=== PATIENT | female | born 1990 | race Caucasian/White ===

== ENCOUNTER → 2017-01-29 15:40 | Observation (INO) ==
--- NOTE | 2017-01-29 13:36 | OB/GYN History & Physical ---
Date of Encounter: 01/29/17 Time of Encounter: 13:32 Assessment and Plan (1) 38 weeks gestation of Current visit: Yes Status: Acute Patient admitted for labor evaluation (2) Lower abdominal pain Current visit: Yes Status: Acute admitted for observation (3) NST (non-stress test) reactive Current visit: Yes Status: Acute baseline 135 bpm moderate variability +15x15 accels no decels noted. History of Present Illness Chief complaint: Contractions HPI: Ms. Edwards is a 26 year old female at 38w4d with EDC of 02/08/2017 presents to labor and delivery with complaints of contractions or lower abdominal pain that started after intercourse last night. Patient denies LOF or VB. Patient denies any urinary symptoms. Patient states only related problem was late care. Patient has also had limited care therefor GBS culture was collected prior to SVE. Blood type: B Negative, Rubella: nonimmune, Hep B nontreactive, GBS: Unknown. Past Med Surg Social Fam HX - Past Medical History Source: patient Medical history: no medical history Psychiatric history: no psych history - Past Surgical History Surgical History: other - Social History Smoking Status: Current every day smoker Smokeless Tobacco Status: No Alcohol use: none Drug use: none Current living situation: Home - Independent Recent Out of Country Travel Within the Last 8 Weeks: No Exposure or Possible Exposure to Illness During Travel: No - Family History Mother Family Member Ethnicity: Non- Living Status: Still Living Hx Family Cardiac Disorders: No Hx Family Respiratory Disorders: No Hx Family Cancer: No Hx Family GI Disorders: No Hx Family Endocrine Disorder: Yes Hx Family Neuromuscular Disorders: No Hx Family Neurologic Disorders: No Hx Family HEENT Disorders: No Hx Family Autoimmune Disorders: No Obstetrical History - Pregnancies : 6 Para: 2 Term: 1 : 1 Ab's: 3 Livin Medications and Allergies Ferrous Sulfate 1 tab PO DAILY 06/06/15 [History] Dha 1 tab PO DAILY 06/06/15 [History] Pantoprazole Sodium [Protonix] 20 mg PO DAILY 09/02/15 [History] Ibuprofen [Motrin] 600 mg PO Q6HR PRN #40 tab 10/18/15 [Rx] Ibuprofen [Motrin] 600 mg PO Q6HR PRN #40 tablet 10/18/15 [Rx] Ondansetron ODT [Zofran ODT] 4 mg SL Q8HR PRN #10 tab.rapdis 02/11/16 [Rx] Potassium Chloride [Klor-Con] 20 meq PO BID #8 packet 02/11/16 [Rx] Allergies No Known Allergies Allergy (Verified 04/18/15 14:20) Review of System OB - Constitutional Constitutional ROS IM: no fever(s), no headache(s) - Cardiovascular Cardiovascular: no chest pain, no edema, no palpitations, no pedal edema, no syncope - Respiratory Respiratory: no cough - Gastrointestinal Gastrointestinal: abdominal pain (lower abdominal pain), heartburn (reports history), no constipation, no diarrhea, no vomiting - Genitourinary Genitourinary: no abnormal vaginal bleeding, no dysuria, no flank pain, no urinary hesitancy, no urinary incontinence, no vaginal discharge, no vaginal odor, no vaginal pruritis Exam - Constitutional Constitutional: well developed, well nourished, no acute distress, average body habitus - HEENT HEENT: Normocephaly, Mucus Membranes Moist - Neck Neck exam: full ROM, supple - Lungs Respiratory exam: CTAB - Cardiovascular Cardiovascular exam: RRR, +S1, +S2 - Abdomen Abdomen: Present: bowel sounds normal, gravid, non tender - Extremities Extremities exam: full ROM, normal inspection Deep Tendon Reflex Grade: 2+ Normal - Vagina Vagina: Present: normal moisture - Cervix Dilation: 3 Effacement: 70 Station: -1 - Uterus Uterus exam: Present: normal size, normal contour - Anus/Rectum Anus/Rectum: Present: normal perianal skin (FHR 135 bpm moderate variability + 15x15 accels no decels noted. Ocassional contraction noted. Cat. 1 tracing.) Results All other labs normal. - VTE Reasons for not Prescribing Prophylaxis: Treatment not Indicated - Low risk for VTE
--- NOTE | 2017-01-29 15:40 | Discharge Summary ---
Date of Encounter: 01/29/17 Time of Encounter: 15:43 - Discharge Diagnosis (1) 38 weeks gestation of Priority: Primary Status: Acute Comments: -Noncompliant with care -Counseled pt on importance of regular visits for care -Pt scheduled for CBC w/ Diff, Glucose Tolerance test, -GBS pending -Will follow up with Dr. Leal outpatient, 02-02-17 -Had no further questions (2) Lower abdominal pain Priority: Secondary Status: Acute Comments: Likely 2/2 to Dayo-Beard contractions, contractions strength remains unchanged during admission (3) Rubella non-immune status, antepartum Priority: Secondary Status: Acute Comments: Pt stated she was not aware of MMR vaccine MMR Vaccine recommendation: Currently contraindicated given status Counseled pt on importance of MMR vaccine after (4) Rh negative status during Priority: Secondary Status: Acute Comments: Received RhoGam 12/07/16 in ED Qualifiers: Trimester: third trimester Qualified Code(s): O09.893 - Supervision of other high risk pregnancies, third trimester - Discharge Medications Home Medications: Ferrous Sulfate 1 tab PO DAILY 06/06/15 [History] Dha 1 tab PO DAILY 06/06/15 [History] Allergies/Adverse Reactions: Allergies No Known Allergies Allergy (Verified 04/18/15 14:20) Data Labs on day of discharge: GBS Date of admission: 01/29/17 12:48 Discharging clinician: Bryanna Aaron Anticipated date of discharge: 01/29/17 - Patient Status Disposition: Home, Self-Care Condition: Good Functional capacity at discharge: independent ambulation Overall status at discharge: other - Discharge Instructions Follow Up With: Bryanna Aaron MD [Partnered Physician] - - Diet and Activity Activity: resume usual activities as tolerated Diet: regular diet Hospital Course LICENSED EMBALMER Time Attestation: Total time spent providing and/or coordinating discharge services: Exam - Constitutional Vitals: Afeb, VSS General appearance IM: cooperative, A&O X 3, no acute distress - Respiratory Respiratory exam: Present: CTAB. Absent: accessory muscle use - Cardiovascular Cardiovascular exam IM: Present: RRR - GI/Abdominal GI/Abdominal exam IM: normal bowel sounds, soft - Additional comments: Sterile Vaginal Exam performed by CNM - Extremities Exam Extremities exam IM: Present: full ROM. Absent: calf tenderness, tenderness - Neurological Exam Neurological exam: alert, oriented X3 - VTE Reasons for not Prescribing Prophylaxis: Treatment not Indicated - Low risk for VTE - Attending Attestation I examined this patient and my medical decision-making was reviewed with the DYE RANGE OPERATOR/PA/Advanced Practice Nurse/Resident Physician. I agree with the documented findings, disposition and treatment plan as described except to the extent set forth below.
== END | disposition home or self-care (01) ==
LOC: 1NENULAB
PROVIDERS: ADMIT Obstetrics & Gynecology; ATTEND Obstetrics & Gynecology

== ENCOUNTER 2017-02-02 01:54 | Inpatient (IN) ==
--- NOTE | 2017-02-01 23:57 | OB/GYN Progress Note ---
Date of Encounter: 02/02/17 Time of Encounter: 23:44 - Assessment and Plan (1) 39 weeks gestation of Current Visit: Yes Status: Acute 26 y/o F at 39 weeks here for evaluation due to contraction pain. (2) NST (non-stress test) reactive Current Visit: No Status: Acute NST was performed and was reactive. Keep follow up appointment scheduled for tomorrow Subjective - Subjective Principal diagnosis: Pain/Contractions Interval history: 26 yo F reports for evaluation of pain/ contractions since 3am. 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 Patient had last live September 2015. Patient has only been to one appointment and reports that she only found out she was 2 months ago. Patient denies any vaginal bleeding, nausea, vomiting, urinary symptoms. Patient reports normal movements. Patient reports pain feels like contractions and is located across her lower abdomen radiating deep into her abdomen. Patient reports when she was last seen she was 3-4cm dilated. Antepartum ROS: movement normal, contractions (painful contractions since this morning. becoming more painful recently. ), no loss of fluid, no vaginal bleeding Objective - Vital Signs Vital Signs: Intake and Output 02/01/17 02/01/17 02/01/17 07:59 15:59 23:59 Other: Weight 76.8 kg Patient Weight 02/01/17 23:59 Weight 76.8 kg - Exam FHR: category 1 FHR comments: NST reactive Auscultation: bilateral: normal Abdomen: Present: normal appearance, gravid Cervical dilation: 2-3cm per nurses exam Cervix effacement: 70
--- NOTE | 2017-02-02 00:23 | OB/GYN History & Physical ---
Date of Encounter: 02/02/17 Time of Encounter: 00:21 Assessment and Plan (1) 39 weeks gestation of Current visit: Yes Status: Acute (2) NST (non-stress test) reactive Current visit: No Status: Acute (3) Spontaneous onset of labor Current visit: Yes Status: Acute Plan to admit for labor if pt continues to make cervical change. GBS negative. Epidural when requested. Anticipate . (4) Late care affecting in third trimester Current visit: Yes Status: Acute (5) Short interval between pregnancies affecting in third trimester, antepartum Current visit: Yes Status: Acute (6) Rh negative state in antepartum period Current visit: Yes Status: Acute Qualifiers: Trimester: third trimester Qualified Code(s): O09.893 - Supervision of other high risk pregnancies, third trimester (7) Anemia affecting Current visit: Yes Status: Acute Qualifiers: Trimester: third trimester Qualified Code(s): O99.013 - Anemia complicating , third trimester (8) hydronephrosis during , antepartum Current visit: Yes Status: Acute Qualifiers: Fetus number: single or unspecified fetus Qualified Code(s): O35.8XX0 - Maternal care for other (suspected) abnormality and damage, not applicable or unspecified History of Present Illness Chief complaint: contractions HPI: Ms. Edwards is a 26 year old female presenting at 39 weeks by 33 week ultrasound dating for c/o contractions since 3am. 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 Patient had last live September 2015. Patient has only been to one appointment and reports that she only found out she was 2 months ago. Patient denies any vaginal bleeding, nausea, vomiting, urinary symptoms. Patient reports normal movements. Patient reports pain feels like contractions and is located across her lower abdomen radiating deep into her abdomen. Patient reports when she was last seen in triage she was 3-4cm dilated. She states that the contractions are getting closer and stronger. Blood type B negative. Rubella non-immune. Serologies negative. GBS negative. Past Med Surg Social Fam HX - Past Medical History Medical history: no medical history Psychiatric history: no psych history - Past Surgical History Surgical History: other - Social History Smoking Status: Current every day smoker Packs per day: 1/2 Smokeless Tobacco Status: No Alcohol use: none Drug use: none - Family History Mother Adopted: No Family Member Ethnicity: Non- Living Status: Still Living Hx Family Cardiac Disorders: Yes (chf) Hx Family Respiratory Disorders: No Hx Family Cancer: No Hx Family GI Disorders: No Hx Family Genitourinary Disorders: No Hx Family Endocrine Disorder: No Hx Family Musculoskeletal Disorders: No Hx Family Neuromuscular Disorders: No Hx Family Neurologic Disorders: No Hx Family HEENT Disorders: No Hx Family Autoimmune Disorders: No Hx Family Reproductive Disorders: No Hx Family Psychosocial Disorders: No Hx Family Medical Disorders: No Obstetrical History - Pregnancies : 6 Para: 2 Term: 2 : 0 Ab's: 3 Livin Medications and Allergies Ferrous Sulfate 1 tab PO DAILY 06/06/15 [History] Dha 1 tab PO DAILY 06/06/15 [History] Allergies No Known Allergies Allergy (Verified 04/18/15 14:20) Review of System OB All systems PM: reviewed and no additional remarkable complaints except as stated Exam - Constitutional Constitutional: well developed, moderate distress - HEENT HEENT: Mucus Membranes Moist - Lungs Respiratory exam: CTAB - Cardiovascular Cardiovascular exam: RRR, +S1, +S2 - Abdomen Abdomen: Present: gravid, non tender - Extremities Extremities exam: normal inspection - Vulva Vulva: bilateral: normal - Cervix Dilation: 4 (3-4cm per RN) - Uterus Uterus exam: Present: normal size - Anus/Rectum Anus/Rectum: Present: normal perianal skin Results All other labs normal. - VTE Reasons for not Prescribing Prophylaxis: Treatment not Indicated - Low risk for VTE
[2017-02-02 00:59] LABS: Bilirubin,Urine Negative (Negative); Blood,Urine Negative (Negative); Clarity,Urine Clear (Clear); Glucose,Urine (UA) Normal (Normal); Ketones,Urine Negative (Negative); Leukocyte Esterase,Urine Negative (Negative); Nitrite,Urine Negative (Negative); Protein,Urine Negative (Neg-Trace); Specific Gravity,Urine 1.006 (1.010-1.025); Urobilinogen,Urine Normal (Normal)
[2017-02-02 01:35] LABS: Amphetamine Screen,Urine Negative ng/mL (Cutoff=1000); Barbiturate Screen,Urine Negative ng/mL (Cutoff=200); Benzodiazepines Screen,Urine Negative ng/mL (Cutoff=200); Cannabinoid Screen,Urine Negative ng/mL (Cutoff = 50); Cocaine Screen,Urine Negative ng/mL (Cutoff= 300); Opiate Screen,Urine Negative ng/mL (Cutoff=300); Phencyclidine Screen,Urine Negative ng/mL (Cutoff=25)
[2017-02-02 01:42] LABS: Color,Urine Light Yellow (Yellow)
[~2017-02-02 01:54] MED LIST: *HR* FentaNYL (PF) 100 MCG/2 ML VIAL ONE; Bupivacaine-MPF 0.25% 10 ML VIAL ONE; Epidural Premix (fent/bupiv) 110 ML EP ONE; Famotidine 20 MG/2 ML VIAL IVP PRN; Naloxone 0.4 MG/ML INJ IVP PRN; Ondansetron 4 MG/2 ML VIAL IVP PRN; Ringers Solution, Lactated 1,000 ML ONE
[2017-02-02] MEDS ORDERED: Ringers Solution, Lactated 1,000 ML IVC SCH (02:00)
[2017-02-02] MEDS ORDERED: Ringers Solution, Lactated 1,000 ML ONE (03:01)
[2017-02-02 04:28] LABS: Basophils % 0.3 %; Eosinophils # 0.2 K/mcL (0.0-0.6); Eosinophils % 1.1 %; Hematocrit 31.9 % (35.3-44.9); Hemoglobin 10.4 g/dL (11.5-15.4); Immature Granulocytes % 1.1 % (0-4); Lymphocytes % 21.2 %; Mean Corpuscular HGB Conc 32.6 g/dL (31.6-35.5); Mean Corpuscular Hemoglobin 29.4 pg (28.0-33.3); Mean Corpuscular Volume 90.1 fL (83.0-100.0); Mean Platelet Volume 9.7 fL (9.4-12.4); Monocytes # 1.1 K/mcL (0.0-1.3); Monocytes % 8.1 %; Neutrophils # 9.5 K/mcL (1.6-8.9); Platelet Count 335 K/mcL (140-400); Red Blood Count 3.54 M/mcL (3.82-4.97); Red Cell Distribution Width 13.4 % (11.5-14.5); Segmented Neutrophils % 68.2 %
--- NOTE | 2017-02-02 06:51 | Anesthesia Evaluation PreOp ---
Date of Encounter: 02/02/17 Time of Encounter: 02:15 - Past History Planned Operation: FRITZ Cardiac History: Denies any Significant Hx Pulmonary History: Smoker, Pack/yr (10) SAFETY DEPOSIT SUPERVISOR History: Denies Any Significant HX Other Medical History: Denies Any Significant HX Anesthesia History: No Prior Anesthetic Complications (no problem w/ previous FRITZ; denies personal and family h/o GA complications), Past Anesthesia : Yes Test: Positive Alcohol Use: none Drug use: none Medications and Allergies Ferrous Sulfate 1 tab PO DAILY 06/06/15 [History] Dha 1 tab PO DAILY 06/06/15 [History] Allergies No Known Allergies Allergy (Verified 04/18/15 14:20) - Meds/Allergy Pre-op Review Medications Reviewed: Yes Allergies Reviewed: Yes Beta Blockers on Current Med List: No Anesthesia Results - Labs 02/02/17 01:35 Anesthesia Exam 123/80; HR 80; RR 22 Height: 1.75m Weight: 77kg NPO (# of Hours): solids > 8hr Pain Scale: 10 Pain Scale Used: Numeric (1 - 10) - HEENT Pupil (Motor): Pupils equal Mallampati: I Teeth: Edentulous (upper jaw), Poor dentition (lower jaw) Oral Opening: Greater than 3 - SAFETY DEPOSIT SUPERVISOR LOC: Oriented SAFETY DEPOSIT SUPERVISOR Motor: Normal RUE, Normal LUE, Normal RLE, Normal LLE, Normal Face SAFETY DEPOSIT SUPERVISOR Sensory: Normal: RUE, LUE, RLE, LLE, Face - Cardiac Rhythm: Regular Murmur: None - Pulmonary Breath Sounds: bilateral Clear Respiratory Effort: Symmetrical Anesthesia Assess/Plan ASA Score: 2 Modified Kari Scale for Level of Consciousness: Anixous, agitated or restless Anesthetic Plan: Regional Autologous Blood: No Monitoring Plan: Standard Monitors Recovery Plan: Other
[2017-02-02] MEDS ORDERED: *HR* FentaNYL (PF) 100 MCG/2 ML VIAL EP ONE (06:55)
[2017-02-02] MEDS ORDERED: Bupivacaine-MPF 0.25% 10 ML VIAL EP ONE (06:55)
--- NOTE | 2017-02-02 06:55 | Anesthesia Procedures ---
Date of Encounter: 02/02/17 Time of Encounter: 02:14 Procedures: Anesthesia - Epidural/Spinal Patient ID/Chart reviewed: Yes Patient examined: Yes OB Eval: Gestational age: 39 weeks 1 day OB Eval: : 7 OB Eval: Hx Para: 2 OB Eval: Dilated at (cm): 6 OB Eval: Contractions: Non-stressed pattern Consent Obtained: Yes Supplemental Oxygen: None/Room Air Site Prep: Aseptic Technique, Sterile prep and drape, Povidone-Iodine 1% Patient position: upright Local Anesthetic: Lidocaine 1% Amount of Local Anesthetic used: 3 Touhy Needle Gauge: 18 Touhy Needle Depth (cm): 5 Catheter Depth at Skin (cm): 10 Test Dose (1.5% Lido + Epi): Volume given (mls): 5 Test Dose Result: Negative Loading Dose: 0.25% Marcaine (mls): 5 Loading Dose: Fentanyl (mcg): 100 Loading Dose Administered: Thru Catheter Infusion Med: 0.125% Bupivacaine w/ 2 mcg/ml Fentanyl Infusion Rate (mls/hr): 14 (w/ demand bolus of 4mL q20min PRN) Catheter Secured in Place: Tegaderm, Tape Interspace Used: L3-L4 Loss of Resistance (MARISA): Yes Blood: No CSF: No Paresthesia: No Vitals + FHT's: Please refer to Leeanna ACEVEDO's electronic documentation for VS entry during procedure
[2017-02-02] MEDS ORDERED: Epidural Premix (fent/bupiv) 110 ML EP SCH (07:00)
--- NOTE | 2017-02-02 07:08 | OB Labor Progress Note ---
Date of Encounter: 02/02/17 Time of Encounter: 07:06 Labor Progress Note - Subjective Subjective: Pt comfortable with epidural. - Cervix Cervix: 9.5/100/2 - Heart Tones Heart Tones: Category I - Elton Elton: 3-4 minutes - Interventions Interventions: AROM for scant amount clear fluid - Plan Plan: Continue to monitor. Anticipate .
--- NOTE | 2017-02-02 07:47 | OB/GYN Procedure Note ---
Delivery - Delivery Date: 02/02/17 Provider: Antonia Andrade Intrapartum events: none Delivery induction: none Delivery augmentation: rupture of membranes Delivery monitor: external FHT, external uterine Anesthesia: epidural Estimated Blood Loss: 100 - (s) Infant A Delivery Date: 02/02/17 Infant Delivery Time: 07:47 Presentation: vertex Position: JAILENE Route of delivery: Gender: Male Viability: Viable Pounds: 6 Ounces: 10 Weight Gram: 3000 kg at 1 minute: 9 at 5 mins: 10 Shoulder Dystocia: not encountered Specimens collected: cord blood Placenta: spontaneous Cord: nuchal cord, delivered through nuchal - Repair Episiotomy: none Laceration Description: None - Complications Delivery complications: none Delivery comments: Pt presented in active labor at 39 weeks. She received an epidural and underwent AROM at 9cm. She then underwent over intact perineum for viable male weighing 6lbs 10oz with apgars 9 and 10. After a 2 minute delay the cord was clamped and cut and the placenta delivered spontaneous and intact. EBL 100ml. Mother and baby stable following delivery. - Disposition Mom disposition: stable in LDR disposition: stable in LDR
[2017-02-02] MEDS ORDERED: Oxytocin 20 units/ LR 1000 mL 20 UNIT/1,000 ML BAG IVC ONE (08:49)
[2017-02-02] MEDS ORDERED: Oxytocin 20 units/ LR 1000 mL 20 UNIT/1,000 ML BAG IVC SCH (10:32)
[2017-02-02] MEDS ORDERED: Measles/Mumps/Rubella Vacc 0.5 ML VIAL SQ PRN (10:32)
[2017-02-02] MEDS ORDERED: Rho Immune Globulin 1,500 UNIT SYRINGE IM PRN (10:32)
[2017-02-02] MEDS: Ibuprofen 600 MG TABLET PO PRN ×2 (13:15→19:40)
[2017-02-02] MEDS: Acetaminophen 325 MG TABLET PO PRN (18:00)
[2017-02-03] MEDS: Acetaminophen 325 MG TABLET PO PRN ×4 (00:04→18:52)
[2017-02-03] MEDS: Ibuprofen 600 MG TABLET PO PRN ×4 (01:31→20:14)
[2017-02-03] MEDS: Prenatal Vit/FA 1 EACH TABLET PO SCH (07:48)
--- NOTE | 2017-02-03 09:12 | OB/GYN Progress Note ---
Date of Encounter: 02/03/17 Time of Encounter: 09:10 - Assessment and Plan (1) Vaginal delivery Current Visit: Yes Status: Acute Continue routine care possible discharge home tomorrow Infant 3 day hold Subjective - Subjective Principal diagnosis: day 1 Interval history: Patient is doing well. Patient reports increase in cramping. No laceration with delivery. Patient reports mild bleeding without blood clots. Patient reports: appetite normal, voiding normally, ambulating normally [place]: doing well, bottle feeding Objective - Latest Vital Signs Latest vital signs: Vital Signs Temp Pulse Resp BP Pulse Ox 02/03/17 08:12 98.1 F 76 14 98/68 98 02/03/17 07:51 16 02/03/17 05:05 98.0 F 68 16 96/59 97 02/02/17 19:40 97.8 F 74 16 100/66 99 02/02/17 16:00 97.9 F 76 16 109/74 99 02/02/17 12:21 98 F 73 16 110/71 98 02/02/17 12:15 98 F 73 16 110/71 98 02/02/17 12:00 16 02/02/17 11:00 97.8 F 70 16 108/72 99 02/02/17 10:00 97.8 F 76 16 102/68 98 Intake and Output 02/02/17 02/03/17 02/03/17 23:59 07:59 15:59 Intake Total 1100 / 1100 800 / 800 Output Total 1250 / 1250 300 / 300 Balance -150 / -150 500 / 500 Intake: Oral 1100 / 1100 800 / 800 Output: Urine 1250 / 1250 300 / 300 Other: Meal Dinner Percent of Meal Consumed 100% Weight 72.2 kg Patient Weight 02/03/17 23:59 Weight 72.2 kg - Exam Lungs: bilateral: normal Chest: Normal S1, Normal S2 Extremities: Present: normal Abdomen: Present: normal appearance, soft, gravid Uterus: Present: normal, firm Uterus Position: 1 Finger Below Umbilicus, Midline - Labs Labs: Laboratory Results - last 24 hr 02/02/17 08:20 Screen NEGATIVE Baby's Blood Type O RH POSITIVE Mother's Blood Type B RH NEGATIVE Rhogam Indicated YES Rhogam Req for Mother 1
[2017-02-04] MEDS: Acetaminophen 325 MG TABLET PO PRN (01:39)
[2017-02-04] MEDS: Prenatal Vit/FA 1 EACH TABLET PO SCH (08:08)
[2017-02-04] MEDS: Ibuprofen 600 MG TABLET PO PRN (08:08)
--- NOTE | 2017-02-04 08:26 | Discharge Summary ---
Date of Encounter: 02/04/17 Time of Encounter: 08:23 - Discharge Diagnosis (1) 39 weeks gestation of Priority: Secondary Status: Resolved (2) Anemia affecting Priority: Secondary Status: Chronic Qualifiers: Trimester: third trimester Qualified Code(s): O99.013 - Anemia complicating , third trimester (3) Spontaneous onset of labor Priority: Primary Status: Resolved (4) Vaginal delivery Priority: Secondary Status: Resolved - Discharge Medications Home Medications: Ferrous Sulfate 1 tab PO DAILY 06/06/15 [History] Dha 1 tab PO DAILY 06/06/15 [History] Allergies/Adverse Reactions: Allergies No Known Allergies Allergy (Verified 04/18/15 14:20) Data Procedures and tests throughout hospitalization: Laboratory Tests 02/02/17 02/02/17 02/02/17 00:46 00:46 01:35 WBC 13.9 H RBC 3.54 L Hgb 10.4 L Hct 31.9 L MCV 90.1 MCH 29.4 MCHC 32.6 RDW 13.4 Plt Count 335 MPV 9.7 Immature Gran % 1.1 Seg Neutrophils % 68.2 Lymphocytes % 21.2 Monocytes % 8.1 Eosinophils % 1.1 Basophils % 0.3 Neutrophils # 9.5 H Lymphocytes # 3.0 Monocytes # 1.1 Eosinophils # 0.2 Basophils # 0.0 Urine Color Light Yellow Urine Clarity Clear Urine pH 7.0 Ur Specific [place] 1.006 L Urine Protein Negative Urine Glucose (UA) Normal Urine Ketones Negative Urine Blood Negative Urine Nitrite Negative Urine Bilirubin Negative Urine Urobilinogen Normal Ur Leukocyte Esterase Negative Ur Culture Indicated? NO Urine Opiates Screen Negative Ur Barbiturates Screen Negative Ur Phencyclidine Scrn Negative Ur Amphetamines Screen Negative U Benzodiazepines Scrn Negative Urine Cocaine Screen Negative U Marijuana (THC) Screen Negative Screen Baby's Blood Type Mother's Blood Type Rhogam Indicated Rhogam Req for Mother 02/02/17 08:20 WBC RBC Hgb Hct MCV MCH MCHC RDW Plt Count MPV Immature Gran % Seg Neutrophils % Lymphocytes % Monocytes % Eosinophils % Basophils % Neutrophils # Lymphocytes # Monocytes # Eosinophils # Basophils # Urine Color Urine Clarity Urine pH Ur Specific [place] Urine Protein Urine Glucose (UA) Urine Ketones Urine Blood Urine Nitrite Urine Bilirubin Urine Urobilinogen Ur Leukocyte Esterase Ur Culture Indicated? Urine Opiates Screen Ur Barbiturates Screen Ur Phencyclidine Scrn Ur Amphetamines Screen U Benzodiazepines Scrn Urine Cocaine Screen U Marijuana (THC) Screen Screen NEGATIVE Baby's Blood Type O RH POSITIVE Mother's Blood Type B RH NEGATIVE Rhogam Indicated YES Rhogam Req for Mother 1 Date of admission: 02/02/17 01:55 Primary care physician: PCP NO Consults: 02/02/17 10:32 Consult to Outside Sales Inspector [CONS] Routine Reason for SW Consult: history of drug use, custody issues, late care - Patient Status Disposition: Home, Self-Care Condition: Good Functional capacity at discharge: independent ambulation Overall status at discharge: patient is progressing back to baseline - Discharge Instructions Follow Up With: NO,PCP [Primary Care Provider] - - Diet and Activity Activity: increase activity as tolerated Diet: advance to your usual diet Hospital Course Reason for admission: active labor Delivery: Episiotomy: none Laceration: none complications: none Discharge diagnosis: IUP at term delivered Time Attestation: Total time spent providing and/or coordinating discharge services: Exam - Constitutional Vitals: Temp Pulse Resp BP Pulse Ox 97.6 F 67 18 120/78 99 02/03/17 20:45 02/03/17 20:45 02/03/17 20:45 02/03/17 20:45 02/03/17 20:45 General appearance IM: A&O X 3 - Respiratory Respiratory exam: Present: CTAB - Cardiovascular Cardiovascular exam IM: Present: RRR - GI/Abdominal GI/Abdominal exam IM: soft - Rectal Rectal exam: deferred - Uterus Position: 2 Fingers Above Umbilicus - Extremities Exam Extremities exam IM: Present: full ROM - Neurological Exam Neurological exam: CN II-XII intact - Attending Attestation sarah beth rincon md facog
[2017-02-04 09:24] VITALS: BP 111/72
== END 2017-02-04 10:20 | disposition home or self-care (01) | DRG 560 ==
LOC: 1NENULAB → 1NENUOBS 10:31
PROVIDERS: ADMIT Obstetrics & Gynecology; ATTEND Obstetrics & Gynecology

== ENCOUNTER 2021-11-19 07:39 | Inpatient (IN) ==
[2021-11-18 23:33] LABS: Basophils % 0.3 %; Eosinophils % 0.2 %; Hematocrit 35.2 % (35.3-44.9); Hemoglobin 11.1 g/dL (11.5-15.4); Immature Granulocytes % 1.1 % (0-4); Lymphocytes # 1.8 K/mcL (0.6-4.6); Lymphocytes % 11.3 %; Mean Corpuscular HGB Conc 31.5 g/dL (31.6-35.5); Mean Corpuscular Hemoglobin 26.1 pg (28.0-33.3); Mean Corpuscular Volume 82.6 fL (83.0-100.0); Mean Platelet Volume 9.4 fL (9.4-12.4); Monocytes % 6.3 %; Neutrophils # 12.8 K/mcL (1.6-8.9); Platelet Count 714 K/mcL (140-400); Red Blood Count 4.26 M/mcL (3.82-4.97); Red Cell Distribution Width 14.6 % (11.5-14.5); Segmented Neutrophils % 80.8 %; White Blood Count 15.8 K/mcL (4.3-11.1)
[2021-11-18 23:50] LABS: Alanine Aminotransferase 16 Units/L (7-52); Aspartate Amino Transferase 18 Units/L (13-39); BUN/Creatinine Ratio 20 (6-26); Blood Urea Nitrogen 13 mg/dL (6-20); Lactate Dehydrogenase 120 Units/L (140-271); Uric Acid 4.4 mg/dL (2.3-7.6); eGFR For African Americans > 60 (> 60); eGFR For Non-African Americans > 60 (> 60)
[2021-11-19 01:55] LABS: Amphetamine Screen,Urine Negative ng/mL (Cutoff=1000); Barbiturate Screen,Urine Negative ng/mL (Cutoff=200); Benzodiazepines Screen,Urine Negative ng/mL (Cutoff=200); Cannabinoid Screen,Urine Negative ng/mL (Cutoff = 50); Cocaine Screen,Urine Negative ng/mL (Cutoff= 300); Opiate Screen,Urine Negative ng/mL (Cutoff=300); Phencyclidine Screen,Urine Negative ng/mL (Cutoff=25)
[2021-11-19 02:54] LABS: Chlamydia Trachomatis DNA Ur NOT DETECTED (Not Detect)
[2021-11-19 03:43] LABS: Creatinine,Urine 231 mg/dL; Protein/Creatinine Ratio,Urine 0.39 mg/mg (0.00-0.20)
[2021-11-19] MEDS: 0.9 % Sodium Chloride 1,000 ML IVC SCH ×2 (06:05→11:20)
[~2021-11-19 07:39] MED LIST changes: +*HR* Nalbuphine 10 MG/ML AMPUL IV STA; +Azithromycin 500 MG in 0.9 % Sodium Chloride 250 ML IVPB PRN; -Bupivacaine-MPF 0.25% 10 ML VIAL ONE; +EPHEDrine 50 MG/ML VIAL IVP PRN; -Epidural Premix (fent/bupiv) 110 ML EP ONE; +Epidural Premix (fent/bupiv) 110 ML EP SCH; +Famotidine 20 MG/2 ML VIAL IVP STA; +Metoclopramide 10 MG/2 ML VIAL IVP PRN; +Ondansetron 4 MG/2 ML VIAL ONE; +Penicillin G Potassium 2,500,000 UNIT/105 ML MLS IVPB SCH; +Penicillin G Potassium 5,000,000 UNIT in 0.9 % Sodium Chloride Mini Bag 100 ML IVPB ONE; +Ringers Solution, Lactated 1,000 ML IVC ONE; +Ringers Solution, Lactated 1,000 ML IVC SCH; +Ropivacaine/PF 0.2% 20 ML VIAL ONE; +cefTRIAXone 2,000 MG in 0.9 % Sodium Chloride 20 ML IVP SCH
[2021-11-19] MEDS ORDERED: Oxytocin 30 UNIT/503 ML BAG IVC ONE (08:06)
[2021-11-19 08:43] LABS: Influenza A PCR Negative (Negative); Influenza B PCR Negative (Negative); Resp. Syncytial Virus PCR Negative (Negative)
[2021-11-19 08:44] LABS: SARS-CoV-2 by PCR (In House) Negative (Negative)
[2021-11-19] MEDS ORDERED: Prenatal Vit/FA 1 EACH TABLET PO SCH (09:56)
[2021-11-19] MEDS ORDERED: OXYTOCIN/RINGERS LACTATE 10 UNIT/166.6 ML BAG IVC ONE (09:56)
[2021-11-19] MEDS ORDERED: Ondansetron ODT 4 MG TAB.RAPDIS SL PRN (09:56)
[2021-11-19] MEDS ORDERED: Benzocaine/Menthol 56 GM AEROSOL SPRAY TP PRN (09:56)
[2021-11-19] MEDS ORDERED: Lanolin 7 G OINT...G. TP PRN (09:56)
[2021-11-19] MEDS ORDERED: Measles/Mumps/Rubella Vacc 0.5 ML VIAL SQ PRN (09:56)
[2021-11-19] MEDS ORDERED: Rho Immune Globulin 1,500 UNIT SYRINGE IM PRN (09:56)
[2021-11-19] MEDS ORDERED: [UNRECOGNIZED DRUG - OTHER] PO SCH (09:56)
[2021-11-19] MEDS ORDERED: *HR* Buprenorphine HCl 8 MG TAB.SUBL SL SCH (10:15)
[2021-11-19] MEDS: Acetaminophen 325 MG TABLET PO SCH ×2 (10:23→16:37)
[2021-11-19] MEDS: Ibuprofen 600 MG TABLET PO SCH ×2 (15:57→16:37)
[2021-11-19 20:43] VITALS: BP 132/91; PULSE 86; TEMP 97.7; O2SAT 100
== END 2021-11-19 21:20 | disposition left against medical advice (07) | DRG 541 ==
LOC: 1NENULAB → 1NENUOBS 11:08
PROVIDERS: ADMIT Advanced Practice Midwife; ATTEND Advanced Practice Midwife